=== PATIENT | male | born 1940 | race Caucasian/White ===

== ENCOUNTER 2016-06-12 06:36 | Day surgery (SDC) | payer BC ==
[~2016-06-12] VITALS: Ht 180.3 cm; Wt 115.7 kg
[~2016-06-12 06:36] MED LIST: ASA PO; ASPIR 8181 MG PO; DAILY MULTIPLE1 EAC1 PO; DIOVAN PO; FUROSEMIDE40 MG PO; IMDUR ER TAB 3030 MG PO; LOW DOSE ASPIRI81 MG PO; MULTIVIT PO; NEURONTIN 300300 MG PO; NITROSTAT 0.40.4 MG SL; NORCO 7.5-3251 EACH PO; NTG SL; PLAVIX 75 MG TA75 MG PO; RANEXA500 MG PO; RELAFEN 750 MG750 MG PO; REQUIP2 MG PO; TOPROL XL50 MG PO; ZETIA10 MG PO; ZOCOR20 MG PO; ZYLOPRIM 100 M100 MG PO; ZYRTEC10 M3 PO
[2016-06-12] MEDS ORDERED: GOLYTELY SOLU4000 ML PO (09:26)
== END 2016-06-12 10:15 | disposition home or self-care (01) ==
LOC: OR 06:36
PROVIDERS: Internal Medicine Gastroenterology
PROC: 0DJD8ZZ Inspection of Lower Intestinal Tract, Via Natural or Artificial Opening Endoscopic (ICD-10-PCS; principal; 2016-06-12 08:00)
DX: K52.9 Noninfective gastroenteritis and colitis, unspecified (principal); K57.30 Diverticulosis of large intestine without perforation or abscess without bleeding; K62.5 Hemorrhage of anus and rectum; E66.9 Obesity, unspecified; I11.9 Hypertensive heart disease without heart failure; G47.30 Sleep apnea, unspecified; M19.90 Unspecified osteoarthritis, unspecified site; Z86.010 Personal history of colon polyps; Z79.02 Long term (current) use of antithrombotics/antiplatelets; Z79.82 Long term (current) use of aspirin; Z79.899 Other long term (current) drug therapy; Z95.5 Presence of coronary angioplasty implant and graft
CPT/HCPCS: J2250; J7030

== ENCOUNTER → 2016-06-13 | Day surgery (SDC) | payer BC ==
[~2016-06-13] MED LIST changes: +GOLYTELY SOLU4000 ML PO
== END | disposition home or self-care (01) ==
LOC: OR 10:36
PROVIDERS: Internal Medicine Gastroenterology
PROC: 0DBN8ZX Excision of Sigmoid Colon, Via Natural or Artificial Opening Endoscopic, Diagnostic (ICD-10-PCS; 2016-06-13)
PROC: 0DBL8ZZ Excision of Transverse Colon, Via Natural or Artificial Opening Endoscopic (ICD-10-PCS; principal; 2016-06-13 12:00)
DX: D12.3 Benign neoplasm of transverse colon (principal); K63.3 Ulcer of intestine; K57.30 Diverticulosis of large intestine without perforation or abscess without bleeding; K64.0 First degree hemorrhoids; I10 Essential (primary) hypertension; G47.30 Sleep apnea, unspecified; M19.90 Unspecified osteoarthritis, unspecified site; Z99.89 Dependence on other enabling machines and devices; Z96.659 Presence of unspecified artificial knee joint; Z98.41 Cataract extraction status, right eye; Z98.42 Cataract extraction status, left eye; Z98.890 Other specified postprocedural states
CPT/HCPCS: J7030

== ENCOUNTER → 2016-07-16 | Outpatient (CLI) | payer BC ==
[2016-07-16 10:55] LABS: HEMOGLOBIN 14.1 gm/dl (14.0-17.5); RED BLOOD COUNT 4.83 M/UL (4.20-5.50); WHITE BLOOD COUNT 5.6 K/UL (4.5-11.0)
[2016-07-16 11:16] LABS: BUN/CREATININE RATIO 11 (0-10)
== END ==
LOC: LAB 09:15
PROVIDERS: Internal Medicine Cardiovascular Disease
DX: E78.2 Mixed hyperlipidemia (principal)
CPT/HCPCS: 36415; 80053; 80061; 82550; 84153; 85025

== ENCOUNTER → 2020-10-11 | Outpatient (CLI) | payer BC ==
[2020-10-11 13:01] LABS: HEMOGLOBIN 13.9 gm/dl (14.0-17.5); RED BLOOD COUNT 4.51 M/UL (4.20-5.50)
== END ==
LOC: LAB 09:14
PROVIDERS: Internal Medicine Cardiovascular Disease
DX: E78.2 Mixed hyperlipidemia (principal); E79.0 Hyperuricemia without signs of inflammatory arthritis and tophaceous disease; R53.82 Chronic fatigue, unspecified; Z12.5 Encounter for screening for malignant neoplasm of prostate
CPT/HCPCS: 36415; 80053; 80061; 82550; 84153; 84439; 84443; 84550; 85025

== ENCOUNTER 2020-11-08 10:59 | Emergency (ER) | payer BC ==
[~2020-11-08] VITALS: Ht 180.3 cm; Wt 111.1 kg
== END 2020-11-08 15:00 | disposition home or self-care (01) ==
LOC: ER1 10:59
DX: Z23 Encounter for immunization (principal); U07.1 COVID-19; I11.9 Hypertensive heart disease without heart failure
CPT/HCPCS: 99283; M0243

== ENCOUNTER → 2021-04-16 | Outpatient (CLI) | payer BC ==
[2021-04-17 22:07] LABS: AMPHETAMINES, URINE Negative ng/mL (Cutoff=1000); BARBITURATE Negative ng/mL (Cutoff=200); BENZODIAZEPINES Negative ng/mL (Cutoff=200); CANNABINOIDS Negative ng/mL (Cutoff=20); COCAINE (METABOLITE) Negative ng/mL (Cutoff=300); CREATININE 33.8 mg/dL (20.0-300.0); MEPERIDINE Negative ng/mL (Cutoff=200); METHADONE Negative ng/mL (Cutoff=300); OPIATES Negative ng/mL (Cutoff=300); PHENCYCLIDINE Negative ng/mL (Cutoff=25); PROPOXYPHENE Negative ng/mL (Cutoff=300)
== END ==
LOC: LAB 11:52
PROVIDERS: Family Medicine
DX: Z51.81 Encounter for therapeutic drug level monitoring (principal); Z79.899 Other long term (current) drug therapy
CPT/HCPCS: 80307

== ENCOUNTER → 2021-09-23 | Outpatient (CLI) | payer BC ==
[~2021-09-23] MED LIST changes: +CALMS FORTE PO; +CEFDINIR300 MG PO; +LASIX40 MG PO; +PREDNISOLONE ACE5 ML OP; -RELAFEN 750 MG750 MG PO; +RELAFEN500 MG PO; +ROPINIROLE HC0.25 MG PO; +ROPINIROLE HCL1 MG PO; +SODIUM CHLORIDE OPTH OP
== END ==
LOC: HEART 5 08:09
DX: R07.9 Chest pain, unspecified (principal); R60.0 Localized edema; I25.10 Atherosclerotic heart disease of native coronary artery without angina pectoris; R01.1 Cardiac murmur, unspecified; R06.02 Shortness of breath; I08.3 Combined rheumatic disorders of mitral, aortic and tricuspid valves; I27.20 Pulmonary hypertension, unspecified
CPT/HCPCS: 78452; 93306; A9502; J2785

== ENCOUNTER → 2021-10-01 | Outpatient (CLI) | payer BC ==
[2021-10-01 10:22] LABS: HEMOGLOBIN 13.9 gm/dl (14.0-17.5); RED BLOOD COUNT 4.45 M/UL (4.20-5.50); WHITE BLOOD COUNT 6.1 K/UL (4.5-11.0)
== END ==
LOC: LAB 09:25
PROVIDERS: Family Medicine
DX: M10.9 Gout, unspecified (principal); I10 Essential (primary) hypertension; E78.2 Mixed hyperlipidemia
CPT/HCPCS: 36415; 80053; 80061; 84550; 85027; G0103

== ENCOUNTER → 2021-11-18 | Outpatient (CLI) | payer BC | LOC: HEART 5 09:06 | DX: R06.02 Shortness of breath (principal) | CPT/HCPCS: 94060; 94729; 95012 ==